=== PATIENT | female | born 1995 | race African-American/Black ===

== ENCOUNTER 2016-07-29 15:32 | Emergency (ER) ==
[2016-07-29 15:39] VITALS: BP 120/86; TEMP 97.8; BMI 40.8
== END 2016-07-29 17:47 | disposition left against medical advice (07) ==
LOC: ED 15:32
DX: N89.8 Other specified noninflammatory disorders of vagina (principal)

== ENCOUNTER 2016-12-27 15:28 | Outpatient (CLI) ==
[2016-12-27] MEDS ORDERED: NON-FORMULARY MEDICATION IM ONE ×22 (15:34)
[2016-12-27] MEDS ORDERED: LIDOCAINE 1 % AMP 5 ML (SUTURES) SUBCUT STA (15:45)
[2016-12-27] MEDS ORDERED: LIDOCAINE 1 % AMP 5 ML (SUTURES) ONE (15:48)
== END 2016-12-27 15:29 | disposition home or self-care (01) ==
LOC: OPMED 15:28
PROVIDERS: ATTEND Obstetrics & Gynecology
DX: A54.9 Gonococcal infection, unspecified (principal)
CPT/HCPCS: 96372

== ENCOUNTER 2017-11-29 09:29 | Outpatient (CLI) | END 2017-11-29 09:30 | disposition home or self-care (01) | LOC: RHC-LAB 09:29 | PROVIDERS: ATTEND Nurse Practitioner Family | DX: E66.3 Overweight (principal); F41.9 Anxiety disorder, unspecified | CPT/HCPCS: 36415; 80053; 80061; 84443; 85025 ==